=== PATIENT | female | born 1990 | race Caucasian/White ===

== ENCOUNTER 2017-07-10 19:30 | Inpatient (IN) | payer MEDICAID, OTHER ==
[~2017-07-10] VITALS: Ht 165.1 cm; Wt 60.0 kg
[~2017-07-10 19:30] MED LIST: librium; valium; vicodin
[2017-07-10] MEDS ORDERED: ESCI20TA PO (19:33)
[2017-07-10] MEDS ORDERED: SODIUM CHLORIDE 0.9% 1,000 ML IV ONE ×2 (19:45→23:15)
[2017-07-10 20:13] LABS: BASOPHILS # (AUTO) 0.03 K/uL (0.00-0.20); BASOPHILS % (AUTO) 0.5 % (0.0-2.0); EOSINOPHILS # (AUTO) 0.08 K/uL (0.00-0.70); EOSINOPHILS % (AUTO) 1.15 % (1.0-6.0); HEMATOCRIT 42.2 % (36-46); LYMPHOCYTES # (AUTO) 2.4 K/uL (1.0-4.8); LYMPHOCYTES % (AUTO) 35.9 % (22.0-44.0); MEAN CORPUSCULAR HGB CONC 33.2 G/dL (31.0-37.0); MEAN CORPUSCULAR VOLUME 93 fL (80-100); MONOCYTES # (AUTO) 0.3 K/uL (0.1-1.0); MONOCYTES % (AUTO) 4.5 % (2.0-9.0); NEUTROPHILS # (AUTO) 3.9 K/uL (1.8-7.7); PLATELET COUNT (AUTO) 217 K/uL (150-450); RED BLOOD CELL COUNT(AUTO) 4.53 MIL/uL (4.00-5.20); RED CELL DISTRIBUTION WIDTH 14.4 % (11.5-14.5); WHITE BLOOD COUNT (AUTO) 6.8 K/uL (4.5-11.0)
[2017-07-10 20:16] LABS: SALICYLATE 3.3 mg/dL (2.8-20.0)
[2017-07-10 20:20] LABS: ANION GAP 16 mmol/L (8-16); CALCIUM, TOTAL 8.8 mg/dL (8.8-10.5); CARBON DIOXIDE 21 mmol/L (22-29); CHLORIDE 98 mmol/L (98-107); CREATININE 1.13 mg/dL (0.60-1.30); GLOMERULAR FILTR. RATE CALC 58 mL/min (>60); POTASSIUM 3.3 mmol/L (3.5-5.1); SODIUM SERUM 135 mmol/L (136-145); UREA NITROGEN, BLOOD 13 mg/dL (7-18)
[2017-07-10 20:32] LABS: LITHIUM < 0.20 mmol/L (0.60-1.20)
[2017-07-10 20:42] LABS: ALANINE AMINOTRANSFERASE 64 U/L (12-78); ALBUMIN 4.2 g/dL (3.4-5.0); ASPARTATE AMINOTRANSFERASE 45 U/L (15-37); BILIRUBIN,TOTAL 0.4 mg/dL (0.1-1.0); CREATINE KINASE MB 2.5 ng/mL (0-5); CREATINE KINASE, TOTAL 255 U/L (26-192); TOTAL PROTEIN, SERUM 8.1 g/dL (6.4-8.2)
[2017-07-10 20:45] LABS: ACETAMINOPHEN < 2 mcg/mL (10-30)
[2017-07-10] MEDS ORDERED: POTASSIUM CHLORIDE 20 MEQ ER TABLET PO ONE (23:45)
[2017-07-11] VITALS (9 sets, daily range): BP systolic 99–119; BP diastolic 60–69
[2017-07-11] MEDS ORDERED: ONDANSETRON HCL 4 MG/2 ML VIAL IVP ONE
[2017-07-11] MEDS ORDERED: HALOPERIDOL 5 MG TABLET PO PRN (01:15)
[2017-07-11] MEDS ORDERED: ZOLPIDEM TARTRATE 10 MG TABLET PO PRN (01:15)
[2017-07-11] MEDS ORDERED: SODIUM CHLORIDE 0.9% 1,000 ML IV ONE ×2 (02:15→03:30)
[2017-07-11] MEDS: LORazepam 2 MG TABLET PO PRN ×3 (07:04→17:33)
[2017-07-11 08:18] LABS: GLUCOSE, URINE (UA) NEGATIVE (NEGATIVE); KETONES,URINE 15 mg/dL (NEGATIVE); LEUKOCYTE ESTERASE ,URINE NEGATIVE (NEGATIVE); OCCULT BLOOD,URINE NEGATIVE (NEGATIVE); PROTEIN,URINE NEGATIVE (NEGATIVE)
[2017-07-11 08:34] LABS: ADD UA MICROSCOPIC NO; APPEARANCE,URINE CLEAR (CLEAR)
[2017-07-11] MEDS ORDERED: LORazepam 2 MG/ML VIAL IM ONE (18:00)
[2017-07-11] MEDS ORDERED: DiphenhydrAMINE HCL 50 MG/ML VIAL IM ONE (18:00)
[2017-07-11] MEDS ORDERED: HALOPERIDOL LACTATE 5 MG/ML VIAL IM ONE (18:00)
[2017-07-11] MEDS ORDERED: LORazepam 2 MG TABLET PO PRN (18:00)
[2017-07-11] MEDS ORDERED: HALOPERIDOL LACTATE 5 MG/ML VIAL ONE (18:06)
[2017-07-11] MEDS ORDERED: DiphenhydrAMINE HCL 50 MG/ML VIAL ONE (18:06)
[2017-07-11] MEDS ORDERED: IBUPROFEN 400 MG TABLET PO PRN (18:15)
[2017-07-11] MEDS ORDERED: ACETAMINOPHEN 325 MG TABLET PO PRN (18:15)
[2017-07-12] VITALS (9 sets, daily range): BP systolic 97–110; BP diastolic 60–69
[2017-07-12] MEDS ORDERED: LORazepam 2 MG TABLET PO PRN (07:00)
[2017-07-12 08:18] LABS: HEMOGLOBIN A1C 5.4 % (4.5-6.2)
[2017-07-12 08:33] LABS: CHOL/HDL RATIO 2.1 (3.9-5.7); POTASSIUM 4.4 mmol/L (3.5-5.1); THYROID STIMULATING HORMONE 0.76 uIU/mL (0.36-3.74)
[2017-07-12] MEDS: ESCITALOPRAM OXALATE 20 MG TABLET PO SCH (12:18)
[2017-07-12] MEDS: LORazepam 2 MG TABLET PO SCH ×3 (12:18→21:00)
[2017-07-13 06:44] VITALS: BP 100/60
[2017-07-13] MEDS: LORazepam 2 MG TABLET PO SCH ×4 (09:00→21:22)
[2017-07-13] MEDS: ESCITALOPRAM OXALATE 20 MG TABLET PO SCH (09:00)
[2017-07-13 10:35] VITALS: BP 99/61
[2017-07-13 16:37] VITALS: BP 116/65
[2017-07-13] MEDS ORDERED: NICOTINE 14 MG/24 HOUR PATCH TD ONE (17:00)
[2017-07-13] MEDS ORDERED: DiphenhydrAMINE HCL 50 MG/ML VIAL IM ONE (18:00)
[2017-07-13] MEDS ORDERED: HALOPERIDOL LACTATE 5 MG/ML VIAL IM ONE (18:00)
[2017-07-13] MEDS ORDERED: LORazepam 2 MG/ML VIAL IM ONE (18:00)
[2017-07-13 19:29] VITALS: BP 110/64
[2017-07-14 04:40] VITALS: BP 113/69
[2017-07-14] MEDS ORDERED: LORazepam 1 MG TABLET PO PRN (07:00)
[2017-07-14] MEDS: NICOTINE 14 MG/24 HOUR PATCH TD SCH (09:00)
[2017-07-14] MEDS ORDERED: ARIPiprazole 5 MG TABLET PO SCH (09:00)
[2017-07-14] MEDS: LORazepam 1 MG TABLET PO SCH ×4 (09:00→21:06)
[2017-07-14] MEDS: ESCITALOPRAM OXALATE 20 MG TABLET PO SCH (09:30)
[2017-07-14 10:00] VITALS: BP 98/57
[2017-07-14 10:38] VITALS: BP 110/67
[2017-07-14 16:00] VITALS: BP 101/62
[2017-07-14] MEDS ORDERED: ARIPiprazole 5 MG TABLET PO ONE (19:00)
[2017-07-15 00:14] VITALS: BP 102/64
[2017-07-15] MEDS ORDERED: LORazepam 1 MG TABLET PO PRN (07:00)
[2017-07-15] MEDS: ESCITALOPRAM OXALATE 20 MG TABLET PO SCH (08:12)
[2017-07-15] MEDS: NICOTINE 14 MG/24 HOUR PATCH TD SCH (08:14)
[2017-07-15 08:18] VITALS: BP 100/67
[2017-07-15 08:19] VITALS: BP 100/67
[2017-07-15] MEDS ORDERED: ARIPiprazole 5 MG TABLET PO SCH (09:00)
[2017-07-15 16:26] VITALS: BP 113/70
[2017-07-15] MEDS ORDERED: ARIP10TA14 PO (18:50)
== END 2017-07-15 20:15 | disposition home or self-care (01) | DRG 751 ==
LOC: EMS 19:32 → B2S 07-11 04:01
PROVIDERS: ADMIT Psychiatry & Neurology Psychiatry; ATTEND Psychiatry & Neurology Psychiatry
DX: F33.2 Major depressive disorder, recurrent severe without psychotic features (principal); I95.9 Hypotension, unspecified; E87.1 Hypo-osmolality and hyponatremia; R45.851 Suicidal ideations; F15.20 Other stimulant dependence, uncomplicated; E87.6 Hypokalemia; F10.20 Alcohol dependence, uncomplicated; F43.10 Post-traumatic stress disorder, unspecified; F60.3 Borderline personality disorder; Z87.891 Personal history of nicotine dependence; Z79.899 Other long term (current) drug therapy; R74.0 Nonspecific elevation of levels of transaminase and lactic acid dehydrogenase [LDH]
CPT/HCPCS: 74022; 83036; 83735; 84132; 84443; 93005; 96361; 96374; 99291; G0480; G0481; J1200; J1630; J2060; J2405; J7030